=== PATIENT | female | born 1980 | race Native Hawaiian/Other Pacific Islander ===

== ENCOUNTER 2016-05-23 13:27 | Emergency (ER) | payer OTHER ==
[~2016-05-23] VITALS: Ht 154.9 cm; Wt 77.1 kg
[~2016-05-23 13:27] MED LIST: CHANTIX CONTINUI1 MG PO; CHANTIX STARTIN0.5 & PO; ESCI10TA PO; HYDR-3182 PO; LORAZEPAM1 MG OR; PHENTERMINE37.5 M1 PO; TRAM50TA PO
[2016-05-23 13:49] VITALS: BP 109/62; TEMP 98.1
== END 2016-05-23 14:45 | disposition home or self-care (01) ==
LOC: ED 13:27
DX: H66.002 Acute suppurative otitis media without spontaneous rupture of ear drum, left ear (principal); H92.02 Otalgia, left ear
CPT/HCPCS: 36415; 99283

== ENCOUNTER 2016-06-12 23:00 | Emergency (ER) | payer OTHER ==
[~2016-06-12] VITALS: Ht 160 cm; Wt 2345.2 kg
[2016-06-13 00:49] VITALS: TEMP 98.2
== END 2016-06-13 01:04 | disposition home or self-care (01) ==
LOC: ED 23:00
DX: K08.89 Other specified disorders of teeth and supporting structures (principal)
CPT/HCPCS: 99282

== ENCOUNTER 2018-01-18 12:11 | Outpatient (CLI) | payer OTHER | END 2018-01-18 12:15 | disposition short-term general hospital (02) | LOC: AMB 12:11 | DX: R47.81 Slurred speech (principal); R29.810 Facial weakness | CPT/HCPCS: A0425; A0427 ==

== ENCOUNTER 2018-01-18 12:17 | Emergency (ER) | payer OTHER ==
[~2018-01-18] VITALS: Ht 157.5 cm; Wt 63.5 kg
[2018-01-18 12:34] VITALS: TEMP 99.1
[2018-01-18 12:43] LABS: PLATELET COUNT 288 K/uL (152-353)
[2018-01-18 12:48] LABS: POTASSIUM 4.3 mmol/L (3.6-5.2)
[2018-01-18 13:52] LABS: PARTIAL THROMBOPLASTIN TIME 29.4 SECONDS (24.5-33.6)
[2018-01-18 14:55] VITALS: BP 118/71
== END 2018-01-18 15:30 | disposition short-term general hospital (02) ==
LOC: ED 12:17
PROVIDERS: Family Medicine
PROC: 0T9B70Z Drainage of Bladder with Drainage Device, Via Natural or Artificial Opening (ICD-10-PCS; principal; 2018-01-18)
DX: I63.9 Cerebral infarction, unspecified (principal)
CPT/HCPCS: 51702; 80053; 80307; 81000; 85027; 85379; 85610; 85730; 92977; 93005; 99285

== ENCOUNTER 2018-01-18 15:33 | Outpatient (CLI) | payer OTHER | END 2018-01-18 17:12 | disposition short-term general hospital (02) | LOC: AMB 15:33 | DX: I63.9 Cerebral infarction, unspecified (principal) | CPT/HCPCS: A0425; A0427 ==

== ENCOUNTER 2019-01-31 18:35 | Emergency (ER) | payer OTHER ==
[~2019-01-31] VITALS: Ht 154.9 cm; Wt 71.2 kg
[2019-01-31 19:30] LABS: PLATELET COUNT 260 K/uL (152-353)
[2019-01-31 19:36] LABS: POTASSIUM 3.9 mmol/L (3.6-5.2); SODIUM 143 mmol/L (136-145)
[2019-02-01 02:48] VITALS: BP 106/70; TEMP 98.1
== END 2019-02-01 02:48 | disposition other institution (70) ==
LOC: ED 18:35
PROVIDERS: Hospitalist
DX: F32.89 Other specified depressive episodes (principal); R45.851 Suicidal ideations; F19.10 Other psychoactive substance abuse, uncomplicated
CPT/HCPCS: 36415; 80053; 80307; 80320; 80329; 81000; 81025; 85027; 93005; 99285

== ENCOUNTER 2019-03-11 14:31 | Outpatient (CLI) | payer OTHER | END 2019-03-11 22:43 | disposition home or self-care (01) | LOC: RAD 14:31 | DX: M25.522 Pain in left elbow (principal) ==

== ENCOUNTER 2022-03-09 17:58 | Emergency (ER) | payer OTHER ==
[~2022-03-09] VITALS: Ht 154.9 cm; Wt 80.3 kg
[2022-03-09 18:07] VITALS: BP 133/92; TEMP 97.9
== END 2022-03-09 20:00 | disposition home or self-care (01) ==
LOC: ED 17:58
DX: N39.0 Urinary tract infection, site not specified (principal)
CPT/HCPCS: 81000; 87088; 99283